=== PATIENT | male | born 1955 | race Caucasian/White ===

== ENCOUNTER 2017-09-02 07:31 | Observation (INO) | payer BC ==
[~2017-09-02 07:31] MED LIST: Buffered Lidocaine 0.9% SYRIN* 5 ML/SYR SYRINGE INTRADERM ONE; Dexamethasone IV* 4 MG/ML 1 ML (4 MG) IV SLOW PU ONE; Famotidine IV* 10 MG/ML 2 ML (20 mg) IV ONE
[2017-09-02] MEDS ORDERED: Famotidine IV* 10 MG/ML 2 ML (20 mg) ONE (08:02)
[2017-09-02] MEDS ORDERED: ceFAZolin 2 GM PREMIX (*) 2 GM/50 ML BAG IVPB ONE ×2 (08:02)
[2017-09-02] MEDS ORDERED: Buffered Lidocaine 0.9% SYRIN* 5 ML/SYR SYRINGE ONE (08:02)
[2017-09-02] MEDS ORDERED: Dexamethasone IV* 4 MG/ML 1 ML (4 MG) ONE (08:02)
[2017-09-02] MEDS ORDERED: Thrombin 5,000 UNITS* 1 APPLIC KIT - topical use - TOPICAL ONE (08:31)
[2017-09-02] MEDS ORDERED: Bacitracin IV* 50,000 UNITS INJ ONE (08:31)
[2017-09-02] MEDS ORDERED: Lidocaine 1% MPF wEPI 200,000* 30 ML SDV ONE (08:31)
[2017-09-02] MEDS ORDERED: fentaNYL* 50 MCG/ML 5 ML VIAL (250 MCG VIAL) ONE (09:25)
[2017-09-02] MEDS ORDERED: Midazolam* 1 MG/ML 10 ML VIAL (10 MG) ONE (09:25)
[2017-09-02] MEDS ORDERED: Lidocaine 2% PF * 5 ML VIAL ONE (09:25)
[2017-09-02] MEDS ORDERED: Ondansetron INJ* 2 MG/ML VIAL ONE (09:25)
[2017-09-02] MEDS ORDERED: Propofol* 10 MG/ML 20 ML BTL IV PUSH ONE (09:25)
[2017-09-02] MEDS ORDERED: Atracurium* 10 MG/ML 10 ML VIAL ONE (09:25)
[2017-09-02] MEDS ORDERED: fentaNYL* 50 MCG/ML 2 ML VIAL (100 MCG VIAL) ONE (10:00)
[2017-09-02] MEDS ORDERED: Magnesium Hydroxide LIQ* 30 ML UDC PO PRN (11:25)
[2017-09-02] MEDS ORDERED: Ondansetron INJ* 2 MG/ML VIAL IV PRN ×2 (11:25→12:10)
[2017-09-02] MEDS ORDERED: HYDROcodone/ACETAMIN 5-325 MG* 1 TAB PO PRN (11:25)
[2017-09-02] MEDS ORDERED: Acetaminophen TAB* 325 MG PO PRN (11:25)
[2017-09-02] MEDS ORDERED: DiMENhydriNATE IV* 50 MG/ML VIAL IV PUSH PRN (12:10)
[2017-09-02] MEDS ORDERED: Naloxone* 0.4 MG/ML 1 ML VIAL IV PRN (12:10)
[2017-09-02] MEDS ORDERED: fentaNYL* 50 MCG/ML 2 ML VIAL (100 MCG VIAL) IV PRN (12:10)
[2017-09-02] MEDS ORDERED: oxyCODONE/Acetamin 5/325 MG* TAB PO PRN (12:10)
[2017-09-02] MEDS ORDERED: HYDROmorphone INJ* 1 MG/ML CARPUJECT SYRINGE IV PRN (12:10)
[2017-09-02] MEDS ORDERED: oxyCODONE/Acetamin 5/325 MG* TAB ONE (12:22)
--- NOTE | 2017-09-02 13:07 | RAD ---
INDICATION: Lumbar discectomy L2-L3 COMPARISON: MRI lumbar spine July 04, 2017 TECHNIQUE: A single crosstable lateral view is submitted . FINDINGS: The single image shows retractors and a curved hemostat at the L2-L3 level. Advanced degenerative disc disease present at L3-L4 as also noted on the MRI. IMPRESSION: OPERATIVE CONTROL FILMS ARE SUBMITTED
[2017-09-02] MEDS ORDERED: Atorvastatin* 40 MG TAB PO SCH (18:00)
[2017-09-02] MEDS ORDERED: Atenolol TAB* 50 MG PO SCH (18:00)
[2017-09-02] MEDS ORDERED: Chlorthalidone TAB* 50 MG PO SCH (18:00)
--- NOTE | 2017-09-03 08:21 | PN ---
Progress Note - Progress Note Date of Service: 09/03/17 SOAP: Subjective: [S/p decompressive lumbar alminectomy L2-3 and lumbar discectomy L2-3 on the right, POD #1. Patient is feeling well this morning and pre-operative symptoms are improved. Ambulating independently. Denies headache and nausea. ] Objective: [ Vital Signs: Temp Pulse Resp BP Pulse Ox 98.2 F 83 16 96/62 94 09/03/17 03:35 09/03/17 03:35 09/03/17 05:50 09/03/17 03:35 09/03/17 03:35 General: Alert and without acute pain. Neuro: Motor and sensory intact. Incision: Intact with mariano. No swelling or erythema. Wound drain discontinued today without complication. Extremities: Full ROM Wound drain output 09/02/17 09/02/17 09/02/17 13:05 13:35 17:20 Output, MARIANNE #1 40 40 60 09/02/17 09/03/17 09/03/17 20:13 01:03 04:56 Output, MARIANNE #1 30 30 15 ] Assessment: [Satisfactory post-op course. Pain well controlled.] Plan: [1. Discharge home today. 2. Discharge instructions provided.]
[2017-09-03 08:38] VITALS: BP 117/56
[2017-09-04] MEDS ORDERED: Famotidine TAB* 20 MG PO PRN (14:18)
[2017-09-04] MEDS ORDERED: Sodium Citrate/Citric Acid* 15 ML UDC PO PRN (14:18)
[2017-09-04] MEDS ORDERED: Phenylephrine IV* 40 MCG/ML 10 ML SYRINGE IV PUSH PRN ×2 (14:18)
[2017-09-04] MEDS ORDERED: OBEPIDURAL* 250 ML EPIDURAL SCH (15:00)
== END 2017-09-03 09:55 | disposition home or self-care (01) ==
LOC: OR 07:31 → SSU 13:22
PROVIDERS: ADMIT Neurological Surgery; ATTEND Neurological Surgery
PROC: 00NY0ZZ Release Lumbar Spinal Cord, Open Approach (ICD-10-PCS; 2017-09-02)
PROC: 0SB20ZZ Excision of Lumbar Vertebral Disc, Open Approach (ICD-10-PCS; principal; 2017-09-02 09:00)
DX: M48.062 Spinal stenosis, lumbar region with neurogenic claudication (principal); M51.26 Other intervertebral disc displacement, lumbar region; M79.604 Pain in right leg; Z79.82 Long term (current) use of aspirin; Z86.79 Personal history of other diseases of the circulatory system
CPT/HCPCS: 72100; 96374; A9270-GY; G0378; J0690; J1100; J2001; J2250; J2405; J2704; J3010